=== PATIENT | male | born 1960 | race Caucasian/White ===

== ENCOUNTER 2017-01-21 08:39 | Emergency (ER) | payer OTHER ==
[2017-01-21 09:24] LABS: HEMOGLOBIN 14.1 gm/dl (14.0-17.5); RED BLOOD COUNT 4.49 M/UL (4.20-5.50); WHITE BLOOD COUNT 11.2 K/UL (4.5-11.0)
[2017-01-21 14:34] LABS: BUN/CREATININE RATIO 14 (0-10)
== END 2017-01-21 16:40 | disposition home or self-care (01) ==
LOC: ER1 08:39
PROVIDERS: Emergency Medicine
DX: N20.1 Calculus of ureter (principal); Z87.19 Personal history of other diseases of the digestive system
CPT/HCPCS: 36415; 80048; 80053; 81001; 82150; 83690; 85025; 96374; 96375; 96376; 99284; J2405; J7030; J7050; Q9965